=== PATIENT | female | born 1960 | race Caucasian/White ===

== ENCOUNTER → 2017-02-06 | Outpatient (CLI) | payer OTHER ==
--- NOTE | 2017-02-07 09:15 | MM ---
Reason for exam: screening (asymptomatic). Last mammogram was performed 9 years and 3 months ago. History: Patient is nulliparous. Family history of premenopausal breast cancer in sister. Cancelled Right Mammotome of the right breast, December 12, 2007. Benign excisional biopsy of the right breast, 2000. Physical Findings: A clinical breast exam by your physician is recommended on an annual basis and results should be correlated with mammographic findings. MG Screening Mammo w CAD Bilateral CC and MLO view(s) were taken. Prior study comparison: November 23, 2007, bilateral diagnostic workup mammogram. October 25, 2007, CAD bilateral diagnostic mammogram. The breast tissue is heterogeneously dense. This may lower the sensitivity of mammography. Finding: There are typically benign dystrophic, round calcifications in both breasts. There is a nodularity bilaterally. New finding since November 23, 2007 and October 25, 2007. ASSESSMENT: Incomplete: need additional imaging evaluation, BI-RAD 0 RECOMMENDATION: Ultrasound of both breasts. [facility] will attempt to contact patient to return for ultrasound.
== END | disposition home or self-care (01) ==
LOC: RADMAMWWP 10:54
PROVIDERS: ATTEND Family Medicine
DX: Z12.31 Encounter for screening mammogram for malignant neoplasm of breast (principal); R92.8 Other abnormal and inconclusive findings on diagnostic imaging of breast

== ENCOUNTER 2017-02-08 09:27 | Day surgery (SDC) | payer OTHER ==
[2017-02-03 15:36] VITALS: BMI 29.6
[~2017-02-08 09:27] MED LIST: LACTATED RINGERS 1,000 ML IV SCH
[2017-02-08 10:06] VITALS: TEMP 97.7
[2017-02-08] MEDS ORDERED: LIDOCAINE 1% 20 ML VIAL (10MG/ML) FOR IV START INTRADERMA ONE (10:12)
[2017-02-08] MEDS ORDERED: PROPOFOL 10 MG/ML 20 ML VIAL IV ONE (10:58)
[2017-02-08] MEDS ORDERED: LIDOCAINE 1% INJ 10MG/ML (20 ML MDV) ONE (10:58)
--- NOTE | 2017-02-08 11:16 | P.PCN ---
Date of Procedure: 02/08/17 Procedure(s) Performed: BRIEF HISTORY: Patient is a 56-year-old pleasant white female, scheduled for an elective colonoscopy as a part of screening for colorectal neoplasia. PROCEDURE PERFORMED: Colonoscopy with biopsy. PREOPERATIVE DIAGNOSIS: Screening for colon cancer. IV sedation per Anesthesia. PROCEDURE: After informed consent was obtained, the patient, was brought into the endoscopy unit. IV sedation was administered by Anesthesia under continuous monitoring. Digital rectal examination was normal. Initially the Olympus CF-160 flexible video colonoscope was then inserted in the rectum, gradually advanced into the cecum without any difficulty. Careful examination was performed as the scope was gradually being withdrawn. Ileocecal valve and the appendiceal orifice were visualized and appeared normal. Prep was excellent. Mucosa of the cecum, ascending colon, transverse colon, descending colon, sigmoid colon, and rectum appeared normal. As a fiber limited sigmoid polyp that was removed by biopsy. Retroflexion was performed in the rectum and no lesions were seen. The patient tolerated the procedure well. IMPRESSION: 5 mm sigmoid polyp polyp status post removal by biopsy Rest of the colon appeared normal. RECOMMENDATIONS: Findings of this examination were discussed with the patient as well as her family. She was advised to follow with the biopsy results. If the biopsy shows a tubular adenoma she can have a repeat colonoscopy in 5 years.
[2017-02-08 11:17] VITALS: BP 121/72; PULSE 76; RESP 18
== END 2017-02-08 11:55 | disposition home or self-care (01) ==
LOC: ORWHC2ENDO 09:27
PROVIDERS: ATTEND Internal Medicine Gastroenterology
DX: Z12.11 Encounter for screening for malignant neoplasm of colon (principal); D12.5 Benign neoplasm of sigmoid colon; Z79.899 Other long term (current) drug therapy; F17.200 Nicotine dependence, unspecified, uncomplicated
CPT/HCPCS: 88305; 45380; J2001; J2704

== ENCOUNTER → 2017-02-09 | Outpatient (CLI) | payer OTHER ==
--- NOTE | 2017-02-13 09:16 | USB ---
Reason for exam: additional evaluation requested from abnormal screening. History: Patient is nulliparous. Family history of premenopausal breast cancer in sister. Cancelled Right Mammotome of the right breast, December 12, 2007. Benign excisional biopsy of the right breast, 2000. Physical Findings: Nurse Summary: 0.5cm round, movable nodules right breast 5 and 7 o'clock (nurse mm). US Breast Workup ETIENNE Right breast ultrasound includes all four quadrants, the retroareolar region and axilla. Finding demonstrate a 3mm oval, cystic lesion at 7 o'clock, a 5mm oval, cystic lesion at 8 o'clock and a 3mm oval, cystic lesion at 9 o'clock. Left breast ultrasound includes all four quadrants, the retroareolar region and axilla. Finding demonstrate a 3mm oval, cystic lesion at 1 o'clock, a small group of small cystic clusters at 2 o'clock and shadowing calcifications at 11 o'clock. Multiple small scattered cysts bilaterally less than 5mm. These results were verbally communicated with the patient and result sheet given to the patient on 02/09/17. ASSESSMENT: Incomplete: need additional imaging evaluation, BI-RAD 0 Benign, BI-RAD 2 finding in the right breast. Incomplete: need additional imaging evaluation, BI-RAD 0 of the left breast. RECOMMENDATION: Special view mammogram of the left breast.
--- NOTE | 2017-02-13 09:18 | MM ---
Reason for exam: additional evaluation requested from abnormal screening. Last mammogram was performed less than 1 month ago. History: Patient is nulliparous. Family history of premenopausal breast cancer in sister. Cancelled Right Mammotome of the right breast, December 12, 2007. Benign excisional biopsy of the right breast, 2000. MG Work Up Mamm w CAD LT ML, spot compression CC, and spot compression MLO view(s) were taken of the left breast. Prior study comparison: February 06, 2017, bilateral MG screening mammo w CAD. November 23, 2007, bilateral diagnostic workup mammogram. Nodular density in the left breast is improved. A 6 month follow up recommended. These results were verbally communicated with the patient and result sheet given to the patient on 02/09/17. ASSESSMENT: Probably benign, BI-RAD 3 RECOMMENDATION: Follow-up diagnostic mammogram of the left breast in 6 months.
== END | disposition home or self-care (01) ==
LOC: RADUSWWP 10:00
PROVIDERS: ATTEND Family Medicine
DX: R92.8 Other abnormal and inconclusive findings on diagnostic imaging of breast (principal)
CPT/HCPCS: 76641; G0206

== ENCOUNTER → 2018-06-20 | Outpatient (CLI) | payer MEDICARE, OTHER ==
[2018-06-20 12:31] LABS: Basophils # (A) 0.1 k/uL (0-0.2); Basophils % (A) 1 %; Eosinophils # (A) 0.4 k/uL (0-0.7); Eosinophils % (A) 4 %; HCT 46.2 % (34.0-46.0); HGB 15.2 gm/dL (11.4-16.0); Lymphocytes # (A) 2.5 k/uL (1.0-4.8); Lymphocytes % (A) 25 %; MCH 29.7 pg (25.0-35.0); MCHC 32.9 g/dL (31.0-37.0); MCV 90.3 fL (80.0-100.0); Mean Platelet Volume 7.3; Monocytes # (A) 0.6 k/uL (0-1.0); Monocytes % (A) 6 %; Neutrophils # (A) 6.2 k/uL (1.3-7.7); Neutrophils % (A) 63 %; Platelet Count 317 k/uL (150-450); RBC 5.12 m/uL (3.80-5.40); RDW 13.3 % (11.5-15.5); WBC 9.9 k/uL (3.8-10.6)
== END | disposition home or self-care (01) ==
LOC: LABWHC1 11:39
PROVIDERS: ATTEND Physician Assistant
DX: L40.0 Psoriasis vulgaris (principal); F41.9 Anxiety disorder, unspecified; M25.512 Pain in left shoulder; M50.30 Other cervical disc degeneration, unspecified cervical region; Z79.899 Other long term (current) drug therapy
CPT/HCPCS: 36415; 80061; 84443; 85025; 86480

== ENCOUNTER → 2019-06-13 | Outpatient (CLI) | payer BC, MEDICARE ==
--- NOTE | 2019-06-13 13:59 | US ---
EXAMINATION TYPE: US abdomen complete DATE OF EXAM: 06/13/2019 COMPARISON: NONE CLINICAL HISTORY: R10.11 right upper pain. RUQ pain, epigastric pain, vomiting bile, cholecystectomy 10 years ago EXAM MEASUREMENTS: Liver Length: 15.0 cm Gallbladder Wall: Surgically absent CBD: 0.8 cm Spleen: 10.3 cm Right Kidney: 9.7 x 3.4 x 4.3 cm Left Kidney: 10.2 x 4.1 x 4.5 cm Pancreas: Tail obscured by overlying bowel gas Liver: There is increased echogenicity of the hepatic parenchyma with diminished visualization of the portal triads most commonly relating to hepatic steatosis and limiting evaluation for underlying hep atic masses. Gallbladder: Surgically absent Evidence for sonographic Colby's sign: no CBD: appears wnl as visualized Spleen: wnl Right Kidney: no evidence of hydronephrosis or mass Left Kidney: no evidence of hydronephrosis or mass Upper IVC: wnl Abd Aorta: wnl The intrahepatic portion of the IVC and proximal abdominal aorta are within normal limits. There is no evidence of cholelithiasis. Common bile duct is unremarkable. The visualized portions of the joiner creas are homogenous. The spleen is unremarkable. Kidneys are symmetric and free of hydronephrosis. No renal lesions are seen. IMPRESSION: 1. Sonographic findings most commonly related to hepatic steatosis. Correlate with liver function jarrett ts. 2. Surgical absence of the gallbladder.
== END | disposition home or self-care (01) ==
LOC: RADUSWWP 12:08
PROVIDERS: ATTEND Family Medicine
DX: R10.11 Right upper quadrant pain (principal); R10.13 Epigastric pain; R10.30 Lower abdominal pain, unspecified; R11.2 Nausea with vomiting, unspecified; R19.7 Diarrhea, unspecified; Z90.49 Acquired absence of other specified parts of digestive tract
CPT/HCPCS: 76700

== ENCOUNTER → 2019-10-17 | Outpatient (CLI) | payer BC, MEDICARE | END | disposition home or self-care (01) | LOC: LABWHC1 11:09 | PROVIDERS: ATTEND Physician Assistant | DX: L40.0 Psoriasis vulgaris (principal) | CPT/HCPCS: 36415; 86480 ==

== ENCOUNTER → 2024-04-04 | Outpatient (CLI) | payer BC, MEDICARE ==
--- NOTE | 2024-04-04 12:15 | XR ---
EXAMINATION TYPE: XR Hip Complete RT DATE OF EXAM: 04/04/2024 COMPARISON: None HISTORY: Right hip pain TECHNIQUE: 2 view right hip FINDINGS: Femoral head articulates with the acetabulum. Joint space is preserved. No acute fracture o r dislocation is evident. Follow up exams can be performed 7-10 days from acute trauma for continued pain. IMPRESSION: 1. No acute osseous abnormality right hip
--- NOTE | 2024-04-04 12:16 | XR ---
EXAMINATION TYPE: XR lumbosacral spine min 4V DATE OF EXAM: 04/04/2024 COMPARISON: None HISTORY: Low back pain TECHNIQUE: 5 view lumbar spine FINDINGS: There is a minimal grade 1 spondylolisthesis of L4 anteriorly on L5. Degenerative disc zuniga ge with loss of disc height is present L2-3 L3-4. Vertebral body heights are preserved. Alignment is otherwise unremarkable. Mild facet degenerative change is present. IMPRESSION: 1. Minimal grade 1 spondylolisthesis of L4 internal 5. 2. Degenerative disc changes L2-3 and L3-4.
--- NOTE | 2024-04-04 13:09 | XR ---
EXAMINATION TYPE: XR shoulder complete LT DATE OF EXAM: 04/04/2024 COMPARISON: NONE HISTORY: Pain TECHNIQUE: Left Shoulder examined in 3 projections. FINDINGS: The humeral head articulates with the glenoid. The acromio-clavicular junction is normal. No acute fractures or dislocations are evident. A follow up study can be performed 7-10 days from acute trauma for continued pain. MRI can be perfor med if soft tissue evaluation would be of benefit. IMPRESSION: 1. No acute osseous left shoulder abnormality.
== END | disposition home or self-care (01) ==
LOC: RADXRYALE 11:32
PROVIDERS: ATTEND Physician Assistant
DX: M43.16 Spondylolisthesis, lumbar region (principal); M47.816 Spondylosis without myelopathy or radiculopathy, lumbar region; M51.36 Other intervertebral disc degeneration, lumbar region; M25.551 Pain in right hip; M25.512 Pain in left shoulder
CPT/HCPCS: 72110; 73502